=== PATIENT | female | born 1970 | race Caucasian/White ===

== ENCOUNTER 2016-11-17 07:39 | Day surgery (SDC) | payer BC ==
--- OUTSIDE RECORDS SUMMARY | 2016-11-17 07:44 | XMS REPORT | Summary of Care ---
:1970 Author Organization [facility] Address [address] [place] [id number]- Care Team Providers Name Role Phone Guillermina Ramirez Primary Care Physician Encounter Date(s): 09/01/16 - 09/01/[address] 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) Fibromyalgia(Confirmed) Active (Confirmed) < 05/15/96 Resolved (Confirmed) < 1992 Resolved (Confirmed) < 11/08/99 Resolved Allergies, Adverse Reactions, Alerts No Known Allergies Medications Amitiza 24 mcg oral capsule 1 cap(s), Oral, BID, # 32 cap(s), 0 Refill(s), Start Date: 03/12/16 14:43:00 CDT , samples given to patient (Rx) Start Date: 03/12/16 Stop Date: 09/01/16 Status: DiscontinuedAmitiza 8 mcg oral capsule 1 cap(s), Oral, BID, 0 Refill(s) Start Date: 12/11/13 Stop Date: 10/10/15 Status: Discontinuedamitriptyline 50 mg oral tablet 1 tab(s), Oral, HS Start Date: 12/18/13 Stop Date: 01/01/15 Status: DiscontinuedAnalpram-HC 1%-1% rectal cream 1 aneudy, [place], TID, X 14 days, # 30 gm, 1 Refill(s), Start Date: 03/12/16 14:40:00 CDT, Pharmacy: [facility] Start Date: 03/12/16 Stop Date: 04/09/16 Status: Completedbaclofen 10 mg oral tablet 1 tab(s), Oral, As Indicated, # 90 tab(s), 0 Refill(s), Start Date: 10/10/15 9: 26:00 [employer]IDE SALES LEAD Start Date: 10/10/15 Status: Orderedbiotin 5000 mcg oral tablet, disintegrating 1 tab(s), Oral, Daily, with meals, # 45 tab(s), 0 Refill(s), Start Date: 14:28:00 [employer] LE[employer] Start Date: 09/15/15 Stop Date: 03/12/16 Status: CompletedCalan SR 180 mg/12 hours oral tablet, extended release 1 tab(s), Oral, Daily, # 30 tab(s), 0 Refill(s), Start Date: 09/15/15 14:25:00 [employer] LE[employer] Start Date: 09/15/15 Status: OrderedclonazePAM 2 mg oral tablet 1 tab(s), Oral, TID, 0 Refill(s), Start Date: 09/15/15 14:27:00 [employer] SALES LEAD Start Date: 09/15/15 Status: OrderedDiflucan 150 mg oral tablet 1 tab(s), Oral, ONETIME, # 1 tab(s), 0 Refill(s), 05/24/14 14:09:00 CDT, Pharmacy: [facility] Start Date: 05/24/14 Stop Date: 08/05/14 Status: DiscontinuedDiflucan 150 mg oral tablet 1 tab(s), Oral, ONETIME, # 1 tab(s), 1 Refill(s), Start Date: 08/05/14 10:53:00 INSIDE SALES LEAD, Pharmacy: [facility] Start Date: 08/05/14 Stop Date: 01/01/15 Status: CompletedEffexor XR 37.5 mg oral capsule, extended release 1 cap(s), Oral, Daily, 0 Refill(s), Start Date: 05/09/15 13:46:00 CDT Start Date: 05/09/15 Status: Orderedgabapentin 300 mg oral capsule 1 cap(s), Oral, TID, # 90 cap(s), 0 Refill(s), Start Date: 05/09/15 13:59:09 CDT , Pharmacy: [facility] Start Date: 05/09/15 Stop Date: 10/10/15 Status: Discontinuedgabapentin 300 mg oral capsule 1 cap(s), Oral, TID, # 90 cap(s), 0 Refill(s), Start Date: 01/07/15 10:59:00 CDT , Pharmacy: [facility] Start Date: 01/07/15 Stop Date: 05/09/15 Status: Completedgabapentin 300 mg oral capsule 1 cap(s), Oral, TID, # 90 cap(s), 0 Refill(s), Start Date: 11/13/14 9:46:00 CDT , Pharmacy: [facility] Start Date: 11/13/14 Stop Date: 01/07/15 Status: CompletedHYDROcodone-acetaminophen 5 mg-325 mg oral tablet See Instructions, 1 po TID-QID prn pain RX to warehouse order picker in office, address on RX, # 90 tab(s), 0 Refill(s), Start Date: 11/28/14 11:18:00 CDT, other reason ( Rx) Start Date: 11/28/14 Stop Date: 04/08/15 Status: CompletedHYDROcodone-acetaminophen 5 mg-325 mg oral tablet 1 tab(s), Oral, TID, Rx given in office and Address written on script, # 90 tab(s), 0 Refill(s), Start Date: 04/08/15 11:58:10 CDT, other reason (Rx) Start Date: 04/08/15 Stop Date: 10/10/15 Status: DiscontinuedHYDROcodone-acetaminophen 7.5 mg-325 mg oral tablet 1 tab(s), Oral, q6hr, PRN for pain, # 90 tab(s), 0 Refill(s), Start Date: 14:00:00 CDT, Pharmacy: [facility] Start Date: 05/09/15 Stop Date: 10/10/15 Status: Discontinuedibuprofen 800 mg, Oral, BID, PRN for pain, 0 Refill(s), Start Date: 11/04/14 8:19:00 CDT Start Date: 11/04/14 Stop Date: 10/10/15 Status: Discontinuedibuprofen 800 mg oral tablet 1 tab(s), Oral, TID, # 90 tab(s), 0 Refill(s), Start Date: 01/31/15 10:37:00 CDT , Pharmacy: [facility] Start Date: 01/31/15 Stop Date: 05/09/15 Status: CompletedImitrex 100 mg oral tablet 1 tab(s), Oral, Daily, PRN for migraine headache, may repeat dose after 2 hours up to a maximum of 200 mg in 24 hours Start Date: 12/18/13 Stop Date: 03/12/16 Status: CompletedLyrica 75 mg oral capsule 1 cap(s), Oral, TID, 0 Refill(s), Start Date: 10/10/15 9:26:00 [employer] Start Date: 10/10/15 Status: Orderedmeloxicam 15 mg oral tablet 1 tab(s), Oral, Daily, 0 Refill(s) Start Date: 12/18/13 Stop Date: 11/04/14 Status: CompletedMobic 7.5 mg oral tablet 1 tab(s), Oral, Daily, # 30 tab(s), 0 Refill(s), Start Date: 09/15/15 14:25:00 [employer] Start Date: 09/15/15 Stop Date: 03/12/16 Status: Completedmorphine 15 mg oral tablet tab(s), Oral, TID, 0 Refill(s), Start Date: 09/01/16 13:18:00 [employer] LEAD Start Date: 09/01/16 Status: Orderedomeprazole 20 mg oral delayed release capsule 1 cap(s), Oral, Daily, before a meal, 0 Refill(s) Start Date: 12/18/13 Status: OrderedPercocet 5/325 tab(s), Oral, BID, 0 Refill(s), Start Date: 09/01/16 13:19:00 [employer] Start Date: 09/01/16 Status: OrderedRectiCare 5% topical cream See Instructions, Apply thin film to affected area up to six times a day as needed for anorectal discomfort., # 4 EA, 0 Refill(s), Start Date: 03/12/16 14: 44:00 CDT, samples given to patient (Rx) Start Date: 03/12/16 Stop Date: 09/01/16 Status: DiscontinuedSavella 50 mg oral tablet 1 tab(s), Oral, BID, 0 Refill(s) Start Date: 12/18/13 Stop Date: 03/12/16 Status: Completedtopiramate 25 mg oral tablet 2 tab(s), Oral, Daily, # 60 tab(s), 0 Refill(s), Start Date: 10/10/15 9:25:00 [employer] Start Date: 10/10/15 Status: OrderedtraMADol 50 mg oral tablet 1 tab(s), Oral, TID, # 90 tab(s), 2 Refill(s), Start Date: 04/08/15 11:59:00 CDT , called to pharmacy (Rx) Start Date: 04/08/15 Stop Date: 10/10/15 Status: DiscontinuedtraMADol 50 mg oral tablet See Instructions, 1-2 tab(s) Oral q4hr PRN pain, # 45 tab(s), 0 Refill(s), Start Date: 08/05/14 15:17:00 [employer] SALES LEAD, other reason (Rx) Start Date: 08/05/14 Stop Date: 11/04/14 Status: CompletedVitamin B-12 500 mcg oral tablet 1 tab(s), Oral, Daily, # 30 tab(s), 0 Refill(s), Start Date: 03/12/16 14:02:00 CDT Start Date: 03/12/16 Stop Date: 09/01/16 Status: DiscontinuedVitamin D3 50,000 intl units oral capsule 1 cap(s), Oral, q7day, # 12 cap(s), 0 Refill(s), Pharmacy: [facility] Start Date: 12/18/13 Stop Date: 08/05/14 Status: Discontinued Results No data available for this section Immunizations No data available for this section Procedures Procedure Date Related Diagnosis Body Site Laminectomy / Decompression Lumbar Post (SCIP)1 01/15/15 CAT scan2 07/20/13 PAP smear preparation 03/13/13 Partial hysterectomy3 2009 Left shoulder surgery 2004 Tonsillectomy and adenoidectomy 2004 D&C - Dilatation and curettage 2001 Laparoscopy; lysis of adhesions 2001 Removal of scartissue from ectopic 2001 Right foot surgery4 1987 1auto-populated from documented surgical [id number] W WO AND [id number] foot Social History No data available for this section Assessment and Plan No data available for this section
--- OUTSIDE RECORDS SUMMARY | 2016-11-17 07:44 | XMS REPORT | Summary of Care ---
:1970 Author Organization [facility] Address [address] [place] [address] Care Team Providers Name Role Phone Guillermina Ramirez Primary Care Physician Encounter Date(s): 09/01/16 - 09/01/16 [facility], [address] [place], [place] [address] Discharge Diagnosis: Encounter for screening mammogram for malignant neoplasm of breast Discharge Diagnosis: Encounter for screening for malignant neoplasm of cervix Discharge Diagnosis: Encounter for screening for human papillomavirus (HPV) Discharge Diagnosis: Cervical high risk human papillomavirus (HPV) DNA test positive Discharge Diagnosis: Encounter for general adult medical examination with abnormal findings Discharge Diagnosis: Breast pain, right Discharge Disposition: 01 Discharged to Home or Self Care Attending Physician: Eric Castle MD Referring Physician: Eric Castle MD Vital Signs Most recent to oldest [Reference Range]: 1 Peripheral Pulse Rate [60-100 bpm] 65 bpm (09/01/16 1:14 PM) Blood Pressure [90-130/60-90 mmHg] 111/70mmHg (09/01/16 1:14 PM) Mean Arterial Pressure, Cuff 84 mmHg (09/01/16 1:14 PM) Weight Dosing 90.30 kg1 (09/01/16 1:17 PM) Weight Measured 90.3 kg (09/01/16 1:14 PM) 1Result Comment: This result was because the dosing weight was either not entered or it is>30 days old. This result is based off: Weight Measured September 01, 2016 13:14:00 DENT REMOVER by Natalie Lemus MA Problem List Condition Effective Dates Status Health [...] Status: DiscontinuedAnalpram-HC 1%-1% rectal cream 1 aneudy, [place], TID, X 14 days, # 30 gm, 1 Refill(s), Start Date: 03/12/16 14:40:00 CDT, Pharmacy: [facility] Start Date: 03/12/16 Stop Date: 04/09/16 Status: Completedbaclofen 10 mg oral tablet 1 tab(s), Oral, As Indicated, # 90 tab(s), 0 Refill(s), Start Date: 10/10/15 9: 26:00 DENT REMOVER Start Date: 10/10/15 Status: Orderedbiotin 5000 mcg oral tablet, disintegrating 1 tab(s), Oral, Daily, with meals, # 45 tab(s), 0 Refill(s), Start Date: 14:28:00 DENT REMOVER Start Date: 09/15/15 Stop Date: 03/12/16 Status: CompletedCalan SR 180 mg/12 hours oral tablet, extended release 1 tab(s), Oral, Daily, # 30 tab(s), 0 Refill(s), Start Date: 09/15/15 14:25:00 DENT REMOVER Start Date: 09/15/15 Status: OrderedclonazePAM 2 mg oral tablet 1 tab(s), Oral, TID, 0 Refill(s), Start Date: 09/15/15 14:27:00 DENT REMOVER Start Date: 09/15/15 Status: OrderedDiflucan 150 mg oral tablet 1 tab(s), Oral, ONETIME, # 1 tab(s), 0 Refill(s), 05/24/14 14:09:00 CDT, Pharmacy: [facility] Start Date: 05/24/14 Stop Date: 08/05/14 Status: DiscontinuedDiflucan 150 mg oral tablet 1 tab(s), Oral, ONETIME, # 1 tab(s), 1 Refill(s), Start Date: 08/05/14 10:53:00 DENT REMOVER, Pharmacy: [facility] Start Date: 08/05/14 Stop Date: 01/01/15 Status: CompletedEffexor XR 37.5 mg oral capsule, extended release 1 cap(s), Oral, Daily, 0 Refill(s), Start Date: 05/09/15 13:46:00 CDT Start Date: 05/09/15 Status: Orderedgabapentin 300 mg oral capsule 1 cap(s), Oral, TID, # 90 cap(s), 0 Refill(s), Start Date: 05/09/15 13:59:09 CDT , Pharmacy: [facility] Start Date: 05/09/15 Stop Date: 10/10/15 Status: Discontinuedgabapentin 300 mg oral capsule 1 cap(s), Oral, TID, # 90 cap(s), 0 Refill(s), Start Date: 01/07/15 10:59:00 CDT , Pharmacy: [facility] Start Date: 01/07/15 Stop Date: 05/09/15 Status: Completedgabapentin 300 mg oral capsule 1 cap(s), Oral, TID, # 90 cap(s), 0 Refill(s), Start Date: 11/13/14 9:46:00 CDT , Pharmacy: [facility] Start Date: 11/13/14 Stop Date: 01/07/15 Status: CompletedHYDROcodone-acetaminophen 5 mg-325 mg oral tablet See Instructions, 1 po TID-QID prn pain RX to worm picker in office, address on RX, # [...] 0 Refill(s), Start Date: 14:00:00 CDT, Pharmacy: [facility] Start Date: 05/09/15 Stop Date: 10/10/15 Status: Discontinuedibuprofen 800 mg, Oral, BID, PRN for pain, 0 Refill(s), Start Date: 11/04/14 8:19:00 CDT Start Date: 11/04/14 Stop Date: 10/10/15 Status: Discontinuedibuprofen 800 mg oral tablet 1 tab(s), Oral, TID, # 90 tab(s), 0 Refill(s), Start Date: 01/31/15 10:37:00 CDT , Pharmacy: [facility] Start Date: 01/31/15 Stop Date: 05/09/15 Status: CompletedImitrex 100 mg oral tablet 1 tab(s), Oral, Daily, PRN for migraine headache, may repeat dose after 2 hours up to a maximum of 200 mg in 24 hours Start Date: 12/18/13 Stop Date: 03/12/16 Status: CompletedLyrica 75 mg oral capsule 1 cap(s), Oral, TID, 0 Refill(s), Start Date: 10/10/15 9:26:00 DENT REMOVER Start Date: 10/10/15 Status: Orderedmeloxicam 15 mg oral tablet 1 tab(s), Oral, Daily, 0 Refill(s) Start Date: 12/18/13 Stop Date: 11/04/14 Status: CompletedMobic 7.5 mg oral tablet 1 tab(s), Oral, Daily, # 30 tab(s), 0 Refill(s), Start Date: 09/15/15 14:25:00 DENT REMOVER Start Date: 09/15/15 Stop Date: 03/12/16 Status: Completedmorphine 15 mg oral tablet tab(s), Oral, TID, 0 Refill(s), Start Date: 09/01/16 13:18:00 DENT REMOVER Start Date: 09/01/16 Status: Orderedomeprazole 20 mg oral delayed release capsule 1 cap(s), Oral, Daily, before a meal, 0 Refill(s) Start Date: 12/18/13 Status: OrderedPercocet 5/325 tab(s), Oral, BID, 0 Refill(s), Start Date: 09/01/16 13:19:00 DENT REMOVER Start Date: 09/01/16 Status: OrderedRectiCare 5% topical [...] tab(s), 0 Refill(s), Start Date: 10/10/15 9:25:00 DENT REMOVER Start Date: 10/10/15 Status: OrderedtraMADol 50 mg oral tablet 1 tab(s), Oral, TID, # 90 tab(s), 2 Refill(s), Start Date: 04/08/15 11:59:00 CDT , called to pharmacy (Rx) Start Date: 04/08/15 Stop Date: 10/10/15 Status: DiscontinuedtraMADol 50 mg oral tablet See Instructions, 1-2 tab(s) Oral q4hr PRN pain, # 45 tab(s), 0 Refill(s), Start Date: 08/05/14 15:17:00 DENT REMOVER, other reason (Rx) Start Date: 08/05/14 Stop Date: 11/04/14 Status: CompletedVitamin B-12 500 mcg oral tablet 1 tab(s), Oral, Daily, # 30 tab(s), 0 Refill(s), Start Date: 03/12/16 14:02:00 CDT Start Date: 03/12/16 Stop Date: 09/01/16 Status: DiscontinuedVitamin D3 50,000 intl units oral capsule 1 cap(s), Oral, q7day, # 12 cap(s), 0 Refill(s), Pharmacy: [facility] Start Date: 12/18/13 Stop Date: 08/05/14 Status: Discontinued Results No data available for this section Immunizations No data available for this section Procedures Procedure Date Related Diagnosis Body Site Laminectomy / Decompression Lumbar Post (SCIP)1 01/15/15 CAT scan2 07/20/13 PAP smear preparation 03/13/13 Partial hysterectomy3 2008 Left shoulder surgery 2004 Tonsillectomy and adenoidectomy 2003 D&C - Dilatation and curettage 2001 Laparoscopy; lysis of adhesions 2001 Removal of scartissue from ectopic 2001 Right foot surgery4 1987 1auto-populated from documented surgical [id number] W WO AND [id number] foot Social History No data available for this section Assessment and Plan No data available for this section
--- OUTSIDE RECORDS SUMMARY | 2016-11-17 07:44 | XMS REPORT | Continuity of Care Document ---
:1970 Author Organization [facility] ([facility] Address [address] [place] [address] Phone [phone] Care Team Providers Name Role Phone Unavailable Primary Care Provider Unavailable Source Comments This disclosure is being made pursuant to the Care Everywhere program, applicable federal and state laws, and may not contain all informaitonavailable regarding this patient.[facility] ([facility]) Active Allergies and Adverse Reactions Not on File Current Medications Not on file Active Problems Not on file Social History Tobacco Use Types Packs/Day Years Used Date Never Assessed Plan of Care Health Maintenance Due Date Last Done Comments Hepatitis B Vaccine (1 of 3 - Primary Series) 1970 Tdap Vaccine 1981 Lipid Disorder Screening 1988 MMR Vaccine 1988 Td Vaccine 1988 Cervical Cancer Screening 2000 Mammogram 2010 Influenza Vaccine: Seasonal (#1) 03/08/2016 Results from Last 3 Months Not on file
--- OUTSIDE RECORDS SUMMARY | 2016-11-17 07:44 | XMS REPORT | Summary of Care ---
:1970 Author Organization [facility] Address [address] [place] [id number]- Care Team Providers Name Role Phone Guillermina Ramirez Primary Care Physician Encounter Date(s): 09/01/16 - 09/01/[address] [address] Discharge Disposition: Discharged to Home or Self Care Attending Physician: Guillermina Ramirez DO Admitting Physician: Guillermina Ramirez DO Vital Signs No data available for this [...] Status: DiscontinuedAnalpram-HC 1%-1% rectal cream 1 aneudy, [place], TID, X 14 days, # 30 gm, 1 Refill(s), Start Date: 03/12/16 14:40:00 CDT, Pharmacy: [facility] Start Date: 03/12/16 Stop Date: 04/09/16 Status: Completedbaclofen 10 mg oral tablet 1 tab(s), Oral, As Indicated, # 90 tab(s), 0 Refill(s), Start Date: 10/10/15 9: 26:00 BUSINESS SYSTEM CONSULTANT Start Date: 10/10/15 Status: Orderedbiotin 5000 mcg oral tablet, disintegrating 1 tab(s), Oral, Daily, with meals, # 45 tab(s), 0 Refill(s), Start Date: 14:28:00 BUSINESS SYSTEM CONSULTANT Start Date: 09/15/15 Stop Date: 03/12/16 Status: CompletedCalan SR 180 mg/12 hours oral tablet, extended release 1 tab(s), Oral, Daily, # 30 tab(s), 0 Refill(s), Start Date: 09/15/15 14:25:00 BUSINESS SYSTEM CONSULTANT Start Date: 09/15/15 Status: OrderedclonazePAM 2 mg oral tablet 1 tab(s), Oral, TID, 0 Refill(s), Start Date: 09/15/15 14:27:00 BUSINESS SYSTEM CONSULTANT Start Date: 09/15/15 Status: OrderedDiflucan 150 mg oral tablet 1 tab(s), Oral, ONETIME, # 1 tab(s), 0 Refill(s), 05/24/14 14:09:00 CDT, Pharmacy: [facility] Start Date: 05/24/14 Stop Date: 08/05/14 Status: DiscontinuedDiflucan 150 mg oral tablet 1 tab(s), Oral, ONETIME, # 1 tab(s), 1 Refill(s), Start Date: 08/05/14 10:53:00 BUSINESS SYSTEM CONSULTANT, Pharmacy: [facility] Start Date: 08/05/14 Stop Date: 01/01/15 Status: CompletedEffexor XR 37.5 mg oral capsule, extended release 1 cap(s), Oral, Daily, 0 Refill(s), Start Date: 05/09/15 13:46:00 CDT Start Date: 05/09/15 Status: Orderedgabapentin 300 mg oral capsule 1 cap(s), Oral, TID, # 90 cap(s), 0 Refill(s), Start Date: 05/09/15 13:59:09 CDT , Pharmacy: [facility] Start Date: 05/09/15 Stop Date: 10/10/15 Status: Discontinuedgabapentin 300 mg oral capsule 1 cap(s), Oral, TID, # 90 cap(s), 0 Refill(s), Start Date: 01/07/15 10:59:00 CDT , Pharmacy: [facility] Start Date: 01/07/15 Stop Date: 05/09/15 Status: Completedgabapentin 300 mg oral capsule 1 cap(s), Oral, TID, # 90 cap(s), 0 Refill(s), Start Date: 11/13/14 9:46:00 CDT , Pharmacy: [facility] Start Date: 11/13/14 Stop Date: 01/07/15 Status: CompletedHYDROcodone-acetaminophen 5 mg-325 mg oral tablet See Instructions, 1 po TID-QID prn pain RX to orange picker in office, address on RX, # [...] 0 Refill(s), Start Date: 14:00:00 CDT, Pharmacy: [facility] Start Date: 05/09/15 Stop Date: 10/10/15 Status: Discontinuedibuprofen 800 mg, Oral, BID, PRN for pain, 0 Refill(s), Start Date: 11/04/14 8:19:00 CDT Start Date: 11/04/14 Stop Date: 10/10/15 Status: Discontinuedibuprofen 800 mg oral tablet 1 tab(s), Oral, TID, # 90 tab(s), 0 Refill(s), Start Date: 01/31/15 10:37:00 CDT , Pharmacy: [facility] Start Date: 01/31/15 Stop Date: 05/09/15 Status: CompletedImitrex 100 mg oral tablet 1 tab(s), Oral, Daily, PRN for migraine headache, may repeat dose after 2 hours up to a maximum of 200 mg in 24 hours Start Date: 12/18/13 Stop Date: 03/12/16 Status: CompletedLyrica 75 mg oral capsule 1 cap(s), Oral, TID, 0 Refill(s), Start Date: 10/10/15 9:26:00 BUSINESS SYSTEM CONSULTANT Start Date: 10/10/15 Status: Orderedmeloxicam 15 mg oral tablet 1 tab(s), Oral, Daily, 0 Refill(s) Start Date: 12/18/13 Stop Date: 11/04/14 Status: CompletedMobic 7.5 mg oral tablet 1 tab(s), Oral, Daily, # 30 tab(s), 0 Refill(s), Start Date: 09/15/15 14:25:00 BUSINESS SYSTEM CONSULTANT Start Date: 09/15/15 Stop Date: 03/12/16 Status: Completedmorphine 15 mg oral tablet tab(s), Oral, TID, 0 Refill(s), Start Date: 09/01/16 13:18:00 BUSINESS SYSTEM CONSULTANT Start Date: 09/01/16 Status: Orderedomeprazole 20 mg oral delayed release capsule 1 cap(s), Oral, Daily, before a meal, 0 Refill(s) Start Date: 12/18/13 Status: OrderedPercocet 5/325 tab(s), Oral, BID, 0 Refill(s), Start Date: 09/01/16 13:19:00 BUSINESS SYSTEM CONSULTANT Start Date: 09/01/16 Status: OrderedRectiCare 5% topical [...] tab(s), 0 Refill(s), Start Date: 10/10/15 9:25:00 BUSINESS SYSTEM CONSULTANT Start Date: 10/10/15 Status: OrderedtraMADol 50 mg oral tablet 1 tab(s), Oral, TID, # 90 tab(s), 2 Refill(s), Start Date: 04/08/15 11:59:00 CDT , called to pharmacy (Rx) Start Date: 04/08/15 Stop Date: 10/10/15 Status: DiscontinuedtraMADol 50 mg oral tablet See Instructions, 1-2 tab(s) Oral q4hr PRN pain, # 45 tab(s), 0 Refill(s), Start Date: 08/05/14 15:17:00 BUSINESS SYSTEM CONSULTANT, other reason (Rx) Start Date: 08/05/14 Stop Date: 11/04/14 Status: CompletedVitamin B-12 500 mcg oral tablet 1 tab(s), Oral, Daily, # 30 tab(s), 0 Refill(s), Start Date: 03/12/16 14:02:00 CDT Start Date: 03/12/16 Stop Date: 09/01/16 Status: DiscontinuedVitamin D3 50,000 intl units oral capsule 1 cap(s), Oral, q7day, # 12 cap(s), 0 Refill(s), Pharmacy: [facility] Start Date: 12/18/13 Stop Date: 08/05/14 Status: Discontinued Results No data available for this section Immunizations No data available for this section Procedures Procedure Date Related Diagnosis Body Site Laminectomy / Decompression Lumbar Post (SCIP)1 01/15/15 CAT scan2 07/20/13 PAP smear preparation 03/13/13 Partial hysterectomy3 2008 Left shoulder surgery 2004 Tonsillectomy and adenoidectomy 2003 D&C - Dilatation and curettage 2002 Laparoscopy; lysis of adhesions 2002 Removal of scartissue from ectopic 2001 Right foot surgery4 1987 1auto-populated from documented surgical [id number] W WO AND [id number] foot Social History No data available for this section Assessment and Plan No data available for this section
[2016-11-17 07:58] VITALS: BP 111/71
[2016-11-17] MEDS ORDERED: METHYLPREDNISOLONE ACETATE 40 MG/ML VIAL IJ ONE (09:00)
[2016-11-17] MEDS ORDERED: BUPIVACAINE HCL/PF 30 ML VIAL IJ ONE (09:00)
== END 2016-11-17 07:40 | disposition home or self-care (01) ==
LOC: AMB 07:39
PROVIDERS: ATTEND Physician Assistant Surgical
DX: Z53.8 Procedure and treatment not carried out for other reasons (principal)

== ENCOUNTER 2017-03-22 13:42 | Emergency (ER) | payer BC ==
--- NOTE | 2017-03-22 14:26 | ERNOTE ---
Lower Extremity HPI - General Lower Extremities Pain: leg: left, thigh: left Time Seen by Provider: 03/22/17 14:01 Source: patient Exam Limitations: no limitations - Immun/Allergies/Home Medications Immunizations: IMMUNIZATION HX Immunizations Up to Date Yes Allergies/Adverse Reactions: Allergies Allergy/AdvReac Type Severity Reaction Status Date / Time No Known Allergies Allergy Verified 03/22/17 13:54 Home Medications: HOME MEDICATIONS Omeprazole 10 mg PO DAILY 11/17/16 [Last Taken Unknown] Pregabalin [Lyrica] 150 mg PO BID 11/17/16 [Last Taken Unknown] Venlafaxine HCl [Effexor] 75 mg PO HS 11/17/16 [Last Taken Unknown] Verapamil HCl 40 mg PO DAILY 11/17/16 [Last Taken Unknown] rOPINIRole HCL [Requip] 1 mg PO DAILY 03/22/17 [Last Taken Unknown] - History of Present Illness Narrative: Patient drove from [facility] to [place] taking her younger started college during the trip noticed that her left lower extremity started to swell and she had pain in the left And up into the distal left thigh. And while it is better today and the swelling is down she still has mild to moderate pain present and some persistent swelling. Occurred: last week Location of Incident: other - while driving Method of Injury: Reports: no apparent injury Review of Systems - Review of Systems Constitutional: Present: See HPI EYE: Present: no symptoms reported ENT: Present: no symptoms reported Respiratory: Present: no symptoms reported Cardiology: Present: no symptoms reported Gastrointestinal/Abdominal: Present: no symptoms reported Genitourinary: Present: no symptoms reported Musculoskeletal: Present: other - left calf and thigh pain Skin: Present: no symptoms reported Neurological: Present: no symptoms reported Endocrine: Present: no symptoms reported Hematologic/Lymphatic: Present: no symptoms reported Psych: Present: no symptoms reported - Patient's Past Medical History Patient History - Medical: No pertinent hx Patient History - Cardiac/Respiratory: Hypertension Patient History - Cancer: No Hx of Cancer Patient History - Surgical Procedures: Back Surgery, D & C, Hysterectomy, T & A , Orthopedic Patient History - Other: None - Social History Smoking Status: Never smoker Have you smoked in the past 12 months: No - Immunizations Immunizations Up to Date: Yes Physical Exam - Physical Exam General Appearance: Present: wd/wn, alert, mild distress Eye Exam: Normal inspection: bilateral, PERRL: bilateral Ears, Nose, Throat: Present: normal ENT inspection, H, normal pharynx Neck: Present: normal inspection, nontender Respiratory: Present: no respiratory distress, normal breath sounds, no accessory muscle use, chest nontender, lungs clear Cardiovascular/Chest: Present: regular rate, rhythm, no murmur, normal peripheral pulses Gastrointestinal/Abdominal: Present: normal bowel sounds, nontender, nondistended, soft, no organomegaly Rectal Exam: Present: deferred Back Exam: Present: normal inspection, normal range of motion Extremity Exam: Present: normal inspection, normal range of motion, no edema, calf tenderness Neurological Exam: Present: alert, oriented, normal mood/affect Skin Exam: Present: normal color, warm/dry Lymphatic Exam: Present: no adenopathy ED Progress - Results and Orders Patient's Lab Results:: I have reviewed the patient's lab results. - Vital Signs Patient's Vital Signs:: I have reviewed the patient's vital signs. Vital Signs: Vital Signs 03/22/17 13:50 Temperature 37.6 C H Pulse Rate 84 Respiratory 12 Rate Blood Pressure 120/93 O2 Sat by Pulse 98 Oximetry - Progress/Reassessment Chief Complaint: Lower Extremity Pain/ Injury Plan - Plan Plan: Patient appears to have a muscle strain compounded with most likely some dependent edema. Her d-dimer is in the normal range so I do not believe that she has a blood clot in the lower extremity. We will have her follow-up with her family physician as needed. Departure Clinical Impression: Muscle strain - Departure Condition: Good Instructions: Muscle Strain, [id number] Referrals: Christel Tavarez, [Primary Care Provider] -
[2017-03-22 15:00] VITALS: BP 119/77
== END 2017-03-22 15:10 | disposition home or self-care (01) ==
LOC: ER 13:42
DX: S86.912A Strain of unspecified muscle(s) and tendon(s) at lower leg level, left leg, initial encounter (principal); S76.912A Strain of unspecified muscles, fascia and tendons at thigh level, left thigh, initial encounter; I10 Essential (primary) hypertension